=== PATIENT | female | born 1975 | race Caucasian/White ===

== ENCOUNTER 2019-10-16 11:57 | Outpatient (CLI) | payer OTHER, SELFPAY ==
[2019-10-16 12:20] LABS: Basophils Absolute Auto 0.1 K/mm3 (0.0-0.1); Basophils Percent Auto 1.3 % (0.2-1.2); Eosinophils Absolute Auto 0.2 K/mm3 (0-0.3); Eosinophils Percent Auto 4.3 % (0-4.4); Hematocrit 38.6 % (37.0-47.0); Hemoglobin 12.9 g/dL (12.0-15.0); Immature Granulocyte Absolute 0.01 K/mm3 (0.00-0.031); Immature Granulocyte Percent A 0.2 % (0-0.5); Lymphocytes Absolute Auto 1.16 K/mm3 (0.9-3.2); Lymphocytes Percent Auto 21.6 % (18.3-44.2); Mean Corpuscular HGB Conc 33.4 g/dl (32-36); Mean Corpuscular Hemoglobin 29.9 pg (26-34); Mean Corpuscular Volume 89.6 fl (80-100); Mean Platelet Volume 10.5 fl (7.4-10.4); Monocytes Absolute Auto 0.4 K/mm3 (0.1-0.6); Monocytes Percent Auto 7.3 % (2.6-8.5); Neutrophils Absolute Auto 3.5 K/mm3 (1.3-6.7); Neutrophils Percent Auto 65.3 % (45.5-73.1); Platelet Count Result 223 k/mm3 (150-375); Red Blood Count 4.31 M/mm3 (4.2-5.4); Red Cell Distribution Width 12.3 % (11.5-14.5); White Blood Count 5.4 K/mm3 (4.5-10.0)
[2019-10-16 12:32] LABS: Cholesterol 310 mg/dL (0-200); HDL Direct 49 mg/dL; Triglycerides 153 mg/dL (<150)
[2019-10-16 12:33] LABS: Alanine Aminotransferase 22 U/L (4-35); Albumin Level 4.1 g/dL (3.5-5.1); Alkaline Phosphatase 52 U/L (38-126); Anion Gap 10.3 mmol/L (7-16); Aspartate Amino Transferase 22 U/L (14-36); Bilirubin,Total 0.3 mg/dL (0.2-1.3); Blood Urea Nitrogen 12 mg/dL (7-17); Calcium 8.8 mg/dL (8.4-10.2); Carbon Dioxide 28 mmol/L (22-30); Chloride 101 mmol/L (98-107); Estimated Glomerular Filt Rate > 60; Glucose 97 mg/dL (65-105); Potassium 4.3 mmol/L (3.4-5.0); Sodium 135 mmol/L (137-145)
[2019-10-16 12:44] LABS: LDL Cholesterol Direct 224 mg/dL
[2019-10-21 00:09] LABS: Alpha-1-Antitrypsin, QN 109 mg/dL (83-199)
== END 2019-10-16 11:58 | disposition home or self-care (01) ==
PROVIDERS: PCP Family Medicine; Visit Provider Physician Assistant
DX: J45.909 Unspecified asthma, uncomplicated (principal); Z83.49 Family history of other endocrine, nutritional and metabolic diseases; R53.83 Other fatigue; R63.5 Abnormal weight gain
CPT/HCPCS: 36415; 80053; 80061; 82103; 84443; 85025

== ENCOUNTER 2019-10-21 15:02 | Outpatient (CLI) | payer OTHER, SELFPAY ==
--- NOTE | ~2019-10-21 | XR_ITS ---
XR lumbar spine 2-3V DATE: 10/21/2019 15:21 INDICATION: Right hip and leg numbness. Sciatica. TECHNIQUE: AP, lateral, coned lateral lumbosacral views COMPARISON: 12/18/2017 lumbar spine FINDINGS: There is mild retrolisthesis at L5-S1, stable since 12/18/2017. There is mild degenerative d isc disease at L3-4, L4-5 and L5-S1. No fracture or bone destruction is evident. The included lower thoracic and lumbar pedicles are intac t. The sacroiliac joints are normal. IMPRESSION: Mild degenerative change Reviewed, dictated and finalized at location [facility]. IMPRESSION: Mild degenerative change
== END 2019-10-21 15:03 | disposition home or self-care (01) ==
LOC: ANHIMG 15:07
PROVIDERS: PCP Family Medicine; Visit Provider Family Medicine
DX: M54.30 Sciatica, unspecified side (principal)
CPT/HCPCS: 72100

== ENCOUNTER → 2019-11-13 13:23 | Outpatient (CLI) | payer OTHER, SELFPAY ==
--- NOTE | ~2019-11-13 | CT_ITS ---
EXAMINATION: CT abdomen pelvis wo con DATE: 11/13/2019 13:50 INDICATION: Generalized abdominal pain. Constipation, change in bowel habits. Right buttock numbness. Intervertebral disc order with radiculopathy. TECHNIQUE: Computed tomography (CT) of the abdomen and pelvis was performed without intravenous contr ast. Automated exposure control and iterative reconstruction technique were employed. Exam dose: 534 .13 mGy-cm total exam DLP. COMPARISON: None. FINDINGS: The lung bases are clear of infiltrate or consolidation or mass lesion. Normal heart size. No pericardial or pleural effusion. The liver, gallbladder, bile ducts, spleen, pancreas, pancreatic duct are unremarkable except for the presence of some peripancreatic fat stranding suggesting pancreatitis. No pancreatic calcifications. Normal morphology of the adrenal glands. No renal mass lesion, scarring, urinary tract calculus or hydroureteronephrosis is detected. The uter us, adnexal areas and urinary bladder are unremarkable. Normal appendix. There are numerous diverticula of left and right colon. There is mild pericolic fat stranding at the distal descending colon which may represent mild focal diverticulitis, without evide nce of any abscess. No bowel obstruction or intraperitoneal free air. Small fat-containing umbilical hernia. Normal caliber of the abdominal aorta. No intraperitoneal or retroperitoneal or pelvic mass lesion or adenopathy or ascites. Included skeletal structures are unremarkable. IMPRESSION: Mild peripancreatic fat stranding, which may indicate pancreatitis; clinical correlation is advised Mild pericolic fat stranding at the distal descending colon; mild diverticulitis should be considered . No abscess. Reviewed, dictated and finalized at [facility]. Reviewed, dictated and finalized at location [facility]. IMPRESSION: Mild peripancreatic fat stranding, which may indicate pancreatitis ; clinical correlation is advised Mild pericolic fat stranding at the distal descending colon; mild diverticuliti s should be considered. No abscess.
== END ==
PROVIDERS: PCP Family Medicine; Visit Provider Family Medicine
DX: M51.16 Intervertebral disc disorders with radiculopathy, lumbar region (principal); R10.9 Unspecified abdominal pain; R93.89 Abnormal findings on diagnostic imaging of other specified body structures
CPT/HCPCS: 74176

== ENCOUNTER 2019-11-17 17:58 | Emergency (ER) | payer OTHER, SELFPAY ==
--- NOTE | ~2019-11-17 | CT_ITS ---
CT lumbar spine wo con DATE: 11/17/2019 19:39 INDICATION: Leg numbness. Rectal pain. TECHNIQUE: Axial images were obtained through the lumbar spine, with sagittal and coronal reconstruct ions. Exam dose: 752.91 mGy-cm total exam DLP. COMPARISON: 10/21/2019 FINDINGS: There is primary lumbar spinal stenosis. AP diameter the spinal canal at L3 is 13 mm, at L4 12.4 mm and at L5 to 10.3 cm. No fracture or bone destruction or spondylolisthesis of the lumbar spine. Bulging disc is noted at L5-S1, with minimal retrolisthesis at this level. There is likely impingemen t upon the S1 nerve roots, more prominent on the right. Recommend clinical correlation. Consider lumb ar MRI evaluation as clinically appropriate. Normal appendix. There are numerous diverticula of the visualized left and right colon; no CT evidence of diverticulit is. IMPRESSION: Primary spinal stenosis Bulging and/or herniated disc at L5-S1, with probable bilateral S1 nerve impingement, right greater t mccormick left ; consider MRI lumbar spine examination Reviewed, dictated and finalized at [facility]. Reviewed, dictated and finalized at location [facility]. IMPRESSION: Primary spinal stenosis Bulging and/or herniated disc at L5-S1, with probable bilateral S1 nerve imping ement, right greater than left ; consider MRI lumbar spine examination
[2019-11-17 18:01] VITALS: BP 128/90; PULSE 88; RESP 18; TEMP 36.4; O2SAT 100
[2019-11-17 18:17] LABS: Basophils Absolute Auto 0.1 K/mm3 (0.0-0.1); Basophils Percent Auto 0.8 % (0.2-1.2); Eosinophils Absolute Auto 0.2 K/mm3 (0-0.3); Hematocrit 38.1 % (37.0-47.0); Hemoglobin 12.9 g/dL (12.0-15.0); Immature Granulocyte Absolute 0.01 K/mm3 (0.00-0.031); Immature Granulocyte Percent A 0.1 % (0-0.5); Lymphocytes Percent Auto 18.8 % (18.3-44.2); Mean Corpuscular HGB Conc 33.9 g/dl (32-36); Mean Corpuscular Hemoglobin 30.4 pg (26-34); Mean Corpuscular Volume 89.6 fl (80-100); Mean Platelet Volume 10.8 fl (7.4-10.4); Monocytes Absolute Auto 0.6 K/mm3 (0.1-0.6); Monocytes Percent Auto 8.2 % (2.6-8.5); Neutrophils Absolute Auto 5.2 K/mm3 (1.3-6.7); Neutrophils Percent Auto 70.1 % (45.5-73.1); Platelet Count Result 265 k/mm3 (150-375); Red Blood Count 4.25 M/mm3 (4.2-5.4); Red Cell Distribution Width 12.5 % (11.5-14.5); White Blood Count 7.4 K/mm3 (4.5-10.0)
[2019-11-17 18:28] LABS: Alanine Aminotransferase 25 U/L (4-35); Albumin Level 4.2 g/dL (3.5-5.1); Alkaline Phosphatase 51 U/L (38-126); Anion Gap 6 mmol/L (8-16); Aspartate Amino Transferase 25 U/L (14-36); Bilirubin,Total 0.2 mg/dL (0.2-1.3); Blood Urea Nitrogen 11 mg/dL (7-17); Calcium 9.2 mg/dL (8.4-10.2); Carbon Dioxide 27 mmol/L (22-30); Chloride 101 mmol/L (98-107); Estimated CRCL calculation 60 ml/min; Estimated Glomerular Filt Rate > 60; Glucose 136 mg/dL (65-105); Lipase 89 U/L (23-300); Sodium 134 mmol/L (137-145)
[2019-11-17 18:38] LABS: Add Urine Microscopic? NO; Appearance Urine Clear (Clear); Bilirubin Urine Negative (Negative); Blood Urine Negative (Negative); Color Urine Yellow (Yellow); Glucose Urine UA Negative (Negative); Ketones Urine Negative (Negative); Leukocyte Esterase Ur Negative LEU/UL (Negative); Nitrate Urine Negative (Negative); Protein Urine Negative (Negative); Specific Grav Ur 1.013 (1.001-1.035); Urobilinogen Urine Negative mg/dL (<2.0)
--- NOTE | 2019-11-17 20:45 | ED.GENADULT ---
HPI - General Adult General Chief complaint: Unspecified Stated complaint: really really severe pain in tailbone Time Seen by Provider: 11/17/19 18:59 Source: patient and family Mode of arrival: ambulatory Limitations: no limitations History of Present Illness HPI narrative: Patient is a 44-year-old who presents with severe low back pain that began in early October was seen October 18 in the emergency department, was given torodal and steroid taper. After the emergency department visit she has seen her primary physician multiple times. During the course patient had unremarkable lumbar spine films, as well as a CAT scan of the abdomen and pelvis which showed possible sigmoid diverticulitis and inflammation around the area of the pancreas. Paitent also had unremarkable lab work. Patient denies abdominal pain during the course of this low back pain. Patient's physician placed her on a steroid but had to discontinue secondary to not tolerating the effects of the steroids (bluured vision as the side effect). Patient presented to the emergency department today for continued discomfort noting pressure and numbness in the perianal vaginal area with numbness down the right leg. Patient notes she continues to have motor intact in the extremities. Patient notes severe pressure in the sacral region. Patient notes that she has had some difficulty with urination today feeling as though she needs to urinate but is unable to fully empty. Patient also notes that she has had difficulty with bowel movements which she attributes to numbness and pain iin the perirectal area. Patient denies injury or trauma or similar occurrence or recent illness Related Data Allergies Allergy/AdvReac Type Severity Reaction Status Date / Time levofloxacin [From Levaquin] AdvReac Severe insomnia/vomiting/diarrhea/feeling Verified 11/17/19 18:03 strange Penicillins AdvReac Severe rash/vomiti Verified 11/17/19 18:03 ng Review of Systems Review of Systems: All systems reviewed & are unremarkable except as noted in HPI and below PMFSH Past Medical History Medical History Aphthous stomatitis Asthma Sciatic nerve pain Social History Social History Social History: Smoking packs per day: 0.5 Smoking cigarettes per day: 10.0 Years smoked: 15 Smoking pack-years: 7.50 Smoking status: Former smoker Tobacco type: cigarettes Second hand tobacco smoke exposure: Yes Smoking end date: 03/13/06 Alcohol intake: never Substance use: never Substance use type: does not use Gender identity (if verbalized by the patient): Female Exam Narrative: Exam Narrative: GENERAL: Well-appearing, well-nourished, uncomfortable, and in no acute distress. HEAD: Normocephalic, atraumatic. EYES: PERRLA and EOMI. ENT: Nares clear, no rhinorrhea or epistaxis. Mucous membranes moist. CHEST: Clear to auscultation. No respiratory distress. No wheezes rales or rhonchi HEART: Regular rate and rhythm. No murmur heard. Normal peripheral pulses. ABDOMEN: Soft, nontender, nondistended EXTREMITIES: Normal range of motion. No edema. Midline sacral lower lumbar segment tenderness no rashes or other deformities noted SKIN: Warm, dry, no rash. NEURO: No focal deficits. Alert and oriented x3. Patient able to perform motor and sensory in the lower extremities without abnormality. Patient with hyper reflexes at the knees. Patient complains of numbness around the rectum and vaginal area on palpation with severe tenderness in the sacral region. PSYCH: Normal mood and affect. Back/Spine/Pelvis: Back: no CVA tenderness Skin: General skin exam: normal color Neuro: General: patient oriented x3, moves all extremities, no focal motor deficits, CN's II-XI intact bilaterally and deep tendon reflexes 2+ bilaterally Cranial nerves: Yes CN's II-XII intact bilat
[2019-11-17 20:57] VITALS: BP 109/60; PULSE 94; RESP 20; O2SAT 99
[2019-11-17] MEDS: MORPHINE SULFATE 4 MG/ML INJ IV PUSH (21:00)
[2019-11-17] MEDS: SODIUM CHLORIDE 0.9% IV 1,000 ML 999 ML IV CONT (21:00)
--- NOTE | 2019-11-17 21:04 | PC.NURSE ---
Called lab to add on C-Reactive Protein and ESR
[2019-11-17 21:19] LABS: CRP 0.7 mg/dL (<1.0)
[2019-11-17 21:38] LABS: Erythrocyte Sedimentation Rate 18 mm/hr (0-20)
--- NOTE | 2019-11-17 23:21 | PC.NURSE ---
Report received from KRISTINE Muhammad.Assumed care of patient at this time.
[2019-11-18] MEDS: MORPHINE SULFATE 4 MG/ML INJ IV PUSH (00:01)
[2019-11-18 00:05] VITALS: BP 122/68; PULSE 92; RESP 18; TEMP 36.6; O2SAT 97
== END 2019-11-18 00:07 | disposition short-term general hospital (02) ==
PROVIDERS: Emergency Medicine Emergency Medical Services; Emergency Provider Family Medicine; PCP Family Medicine
DX: R29.818 Other symptoms and signs involving the nervous system (principal); M54.5 Low back pain; J45.909 Unspecified asthma, uncomplicated; Z87.891 Personal history of nicotine dependence; M48.00 Spinal stenosis, site unspecified; M51.27 Other intervertebral disc displacement, lumbosacral region
CPT/HCPCS: 36415; 72131; 80053; 81003; 81025; 83690; 85025; 85652; 86140; 96361; 96365; 96374; 96375; 99285; J0131; J1100; J2270; J7030